=== PATIENT | female | born 1945 | race Caucasian/White ===

== ENCOUNTER → 2022-02-14 14:51 | Outpatient (BNVA) | payer MEDICARE, OTHER, SELFPAY | PROVIDERS: PCP Internal Medicine; Visit Provider Psychiatry & Neurology Neurology | DX: G20 Parkinson's disease (principal); R26.89 Other abnormalities of gait and mobility | CPT/HCPCS: 99202 ==

== ENCOUNTER → 2022-05-16 14:48 | Outpatient (BNVA) | payer MEDICARE, OTHER, SELFPAY | PROVIDERS: PCP Internal Medicine; Visit Provider Psychiatry & Neurology Neurology | DX: G20 Parkinson's disease (principal); R26.89 Other abnormalities of gait and mobility; G25.9 Extrapyramidal and movement disorder, unspecified | CPT/HCPCS: 99212 ==

== ENCOUNTER → 2022-08-25 14:19 | Outpatient (BNVA) | payer MEDICARE, OTHER, SELFPAY | PROVIDERS: PCP Internal Medicine; Visit Provider Psychiatry & Neurology Neurology | DX: G20 Parkinson's disease (principal); G25.9 Extrapyramidal and movement disorder, unspecified; R26.89 Other abnormalities of gait and mobility; M54.2 Cervicalgia; M54.9 Dorsalgia, unspecified | CPT/HCPCS: 99212 ==

== ENCOUNTER → 2022-09-24 13:49 | Outpatient (BNVA) | payer MEDICARE, OTHER, SELFPAY | PROVIDERS: PCP Internal Medicine; Visit Provider Psychiatry & Neurology Neurology | DX: G20 Parkinson's disease (principal); R26.89 Other abnormalities of gait and mobility; G25.9 Extrapyramidal and movement disorder, unspecified | CPT/HCPCS: 99212 ==

== ENCOUNTER → 2022-11-25 14:50 | Outpatient (BNVA) | payer MEDICARE, OTHER, SELFPAY | PROVIDERS: PCP Internal Medicine; Visit Provider Psychiatry & Neurology Neurology | DX: G20 Parkinson's disease (principal); R26.89 Other abnormalities of gait and mobility; G25.9 Extrapyramidal and movement disorder, unspecified | CPT/HCPCS: 99212 ==

== ENCOUNTER → 2022-12-19 14:37 | Outpatient (BNVA) | payer MEDICARE, OTHER, SELFPAY | PROVIDERS: PCP Internal Medicine; Visit Provider Physician Assistant | DX: G95.20 Unspecified cord compression (principal) | CPT/HCPCS: 99202 ==

== ENCOUNTER → 2023-01-28 14:52 | Outpatient (BNVA) | payer MEDICARE, OTHER, SELFPAY | PROVIDERS: PCP Internal Medicine; Visit Provider Psychiatry & Neurology Neurology | DX: G95.20 Unspecified cord compression (principal); G25.9 Extrapyramidal and movement disorder, unspecified; R26.89 Other abnormalities of gait and mobility | CPT/HCPCS: 99212 ==

== ENCOUNTER 2023-03-16 13:13 | Outpatient (AMB) | payer MEDICARE, OTHER, SELFPAY ==
--- NOTE | 2023-03-16 13:22 | A.OFFVIS_ITS ---
Intake Vital Signs 03/16/23 13:40 Height 5 ft 3 in BP 140/70 H Blood Pressure Location Rt brachial Position Sitting Pulse 89 Pulse Source Pulse Oximeter Pulse Oximetry (%) 95 Oxygen Delivery Method Room Air Intake Visit Reasons: 2m follow up Parkinson's Intake Note: Patient presents for 2 month follow up. Patient states she had a cerebral event last week () Allergies No Known Allergies Allergy (Verified 03/16/23 13:35) Medication List - Last Reconciled 03/16/23 by Chika Negrete MD albuterol sulfate 90 mcg/actuation 1 inh inhalation Q4H PRN albuterol sulfate 2.5 mg inhalation TID PRN aspirin 81 mg PO DAILY biotin 5,000 mcg PO DAILY cholecalciferol (vitamin D3) 25 mcg PO DAILY docusate sodium 100 mg PO DAILY fluoxetine 20 mg PO QAM agiyurungdd-conpiejgv-ttsskaup 100-62.5-25 mcg (Trelegy Ellipta) 1 ea inhalation DAILY L.acidophilus-Bifido.longum 15 mg (1 billion cell) 1 cap PO DAILY lorazepam 1 mg PO TID PRN losartan 50 mg PO DAILY multivitamin (Daily Multi-Vitamin tablet) 1 tab PO DAILY omeprazole 20 mg PO DAILY onabotulinumtoxinA (cosmetic) (Botox Cosmetic) IM .yearly ondansetron HCl 4 mg PO Q8H PRN pravastatin 20 mg PO BEDTIME ramelteon 8 mg PO BEDTIME ropinirole 1 mg PO QID 90 days wheat dextrin (Best Fiber) 1 packet PO DAILY HPI HPI Comments History of Present Illness Details 77y/o right handed female comes for follow up . On March 04 2023 ( 10 days ago ) she was scheduled for preop and was suddenly confused- did not know where she was going. At the preop physical - she was admitted to r/o stroke she was admitted - CT CTA were nonfocal . 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 she was diagnosed with Transient Global amnesia- acute delirium vs stress related( she has been stressed baout her diagnosis of Macular deg and cervical spine surgery) she is on Aspirin 81mg qd and pravastatin 20mg . she was supposed to have C spine surgery today at [facility] but was cancelled. Her spouse is concerned about her cognition. she has numbness, tingling and burning pain in her feet. she feels her balance is off . No falls. she feels her fine motor skills have worsened.Since her last visit she was diagnosed with emphysema,asthma, lung infection, right eye macular degeneration etc. she meets up with Dr. Heber Garcia tomorrow for her mood. she reports worsening of her balance . No falls. Tremors are worse. she reports vertigo when she changes position. she takes lorazepam 1mg 2 tabs qhs - she has frequent arousals . she reports pain in her lower extremities Tylenol helps She has IBS. 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 currently she is doing better without botox. Her brother has dystonias well she also has myectomy in the past. [facility] Medical History (Updated 03/16/23 @ 14:16 by Chika Negrete MD) Anxiety Arthritis Cataract Cervical cord compression with myelopathy Cervical spondylosis Cognitive impairment Depression Diabetes Emphysema lung History of skin cancer History of squamous cell carcinoma Hx of basal cell carcinoma Hyperlipidemia Irritable bowel syndrome Macular degeneration Parkinson disease Sinusitis TGA (transient global amnesia) Surgical History H/O abdominoplasty H/O cervical spine surgery History of repair of rectocele History of surgery Hx of breast surgery Hx of cataract extraction Hx of cholecystectomy Hx of hysterectomy Hx of tonsillectomy Hx of tubal ligation Family History Sister Dystonia Other IBS (irritable bowel syndrome) Skin cancer Social History Household Members: Spouse Alcohol intake: former Patient Tobacco Use Status: Never used Tobacco Review of Systems Neuro Reports Abnormal speech present Physical Exam Vital Signs: Last Vital Signs Pulse 89 03/16/23 13:40 BP 140/70 H 03/16/23 13:40 Pulse Ox 95 03/16/23 13:40 Oxygen Delivery Method Room Air 03/16/23 13:40 Const General: cooperative, comfortable and awake Nutritional Appearance: average body habitus Orientation/consciousness: patient oriented x3 HEENT Other: mild blepherospasm Head: Yes normal to inspection Neck Other: restricted range of motion Neuro Other: head mild tilt to right and trunk mild tilt to left Mild decreased blink and facial expression no tremors Mild perioral movements tongue movements No tremors, jasper cog wheel rigidty - 1 + FFM and foot taps normal Gait - mild slowness, good posture stride General: patient oriented x3 Speech: Abnormal speech present Deep tendon reflexes (DTR's): Right triceps reflex intensity grade: 2+, Left triceps reflex intensity grade: 2+, Rt Biceps (C5, C6): 2+, Left biceps reflex intensity grade: 2+, Right brachioradialis reflex intensity grade: 2+, Left brachioradialis reflex intensity grade: 2+, Right patellar reflex intensity grade: 4+, Left patellar reflex intensity grade: 4+, Right ankle reflex intensity grade: 4+ and Left ankle reflex intensity grade: 4+ Coordination: naqoyp-rt-[id number] test normal Assessment & Plan Assessment & Plan (1) Cervical cord compression with myelopathy: Code(s): G95.20 - Unspecified cord compression (2) Extrapyramidal and movement disorder: Comment: TAMI negative Has parkinsonism and some perioral movements Code(s): G25.9 - Extrapyramidal and movement disorder, unspecified (3) TGA (transient global amnesia): Comment: likely stress related Code(s): G45.4 - Transient global amnesia (4) Cognitive impairment: Code(s): R41.89 - Other symptoms and signs involving cognitive functions and awareness Plan Reviewed admission notes and MRI labs from [facility] . Neuropsych evaluation continue aspirin 81mg qd Pravastatin 20mg qd( LDL 74) consider using incontinence pads for night Continue ropinirole 1mg qid ramelteon 8mg qhs Call neurosurgery - for cord compression. Orders: Referrals Neuropsychiatry Referral R41.89 - Other symptoms and signs involving cognitive functions and awareness Coding Level of Care Code Est Pt Level 4 (56271) Diagnoses Cervical cord compression with myelopathy G95.20 Extrapyramidal and movement disorder G25.9 TGA (transient global amnesia) G45.4 Cognitive impairment R41.89
[2023-03-16 13:40] VITALS: BP 140/70; PULSE 89; O2SAT 95
== END 2023-03-16 14:22 | disposition home or self-care (01) ==
PROVIDERS: PCP Internal Medicine; Visit Provider Psychiatry & Neurology Neurology
DX: G95.20 Unspecified cord compression (principal); G25.9 Extrapyramidal and movement disorder, unspecified; G45.4 Transient global amnesia; R41.89 Other symptoms and signs involving cognitive functions and awareness
CPT/HCPCS: 99214

== ENCOUNTER → 2023-03-16 13:13 | Outpatient (BNVA) | payer MEDICARE, OTHER, SELFPAY | PROVIDERS: PCP Internal Medicine; Visit Provider Psychiatry & Neurology Neurology | DX: G95.20 Unspecified cord compression (principal); G45.4 Transient global amnesia; R41.89 Other symptoms and signs involving cognitive functions and awareness; G25.9 Extrapyramidal and movement disorder, unspecified | CPT/HCPCS: 99212 ==

== ENCOUNTER 2023-06-22 13:05 | Outpatient (AMB) | payer MEDICARE, OTHER, SELFPAY ==
--- NOTE | 2023-06-22 13:25 | A.OFFVIS_ITS ---
Intake Vital Signs 06/22/23 13:26 Weight 141 lb 8 oz BP 154/86 H Blood Pressure Location Lt brachial Position Sitting Respiration 16 Pulse 71 Pulse Source Pulse Oximeter Pulse Oximetry (%) 96 Oxygen Delivery Method Room Air Intake Visit Reasons: 3m follow up Parkinson's/Confirmed Intake Note: Pt presents to the office for her 3 month follow up for Parkinson's. She reports she is worse than at her last visit. There has been gradual worsening of her tremors. She now also has hallucinations that have been happening for about 2 months. 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: No Allergies No Known Allergies Allergy (Verified 06/22/23 13:26) Medication List - Last Reconciled 06/22/23 by Chika Negrete MD albuterol sulfate 90 mcg/actuation 1 inh inhalation Q4H PRN albuterol sulfate 2.5 mg inhalation TID PRN aspirin 81 mg PO DAILY biotin 5,000 mcg PO DAILY cholecalciferol (vitamin D3) 25 mcg PO DAILY docusate sodium 100 mg PO DAILY fluoxetine 20 mg PO QAM glstlmruqaj-afoleqnhm-mhxlsnlm 100-62.5-25 mcg (Trelegy Ellipta) 1 ea inhalation DAILY L.acidophilus-Bifido.longum 15 mg (1 billion cell) 1 cap PO DAILY lorazepam 1 mg PO TID PRN losartan 50 mg PO DAILY multivitamin (Daily Multi-Vitamin tablet) 1 tab PO DAILY omeprazole 20 mg PO DAILY onabotulinumtoxinA (cosmetic) (Botox Cosmetic) IM .yearly ondansetron HCl 4 mg PO Q8H PRN pravastatin 20 mg PO BEDTIME ropinirole 1 mg PO QID 90 days vitamins A,C,P-riqh-xlqfwq 2,148 mcg-113 mg-45 mg-17.4mg (PreserVision AREDS) 2 tabs PO BID wheat dextrin (Best Fiber) 1 packet PO DAILY HPI HPI Comments History of Present Illness Details 78y/o right handed female comes for [facility] .she has cervical myelopathy with cord compression and was seen by neurosurgeon at [facility] but she and her are not sure due to her watershed infarct. she does well with ropiniorle 1mg qid but needs reminding .she reports hallucinations mostly at night. Previous history- On March 04 2023 ( 10 days ago ) she was scheduled for preop and was suddenly confused- did not know where she was going. At the preop physical - she was admitted to r/o stroke she was admitted - CT CTA were nonfocal . 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 she was diagnosed with Transient Global amnesia- acute delirium vs stress related( she has been stressed about her diagnosis of Macular deg and cervical spine surgery) she is on Aspirin 81mg qd and pravastatin 20mg . she was supposed to have C spine surgery today at [facility] but was cancelled. Her spouse is concerned about her cognition. she has numbness, tingling and burning pain in her feet. she feels her balance is off . No falls. she feels her fine motor skills have worsened.Since her last visit she was diagnosed with emphysema,asthma, lung infection, right eye macular degeneration etc. she meets up with Dr. Heber Garcia tomorrow for her mood. she reports worsening of her balance . No falls. Tremors are worse. she reports vertigo when she changes position. she takes lorazepam 1mg 2 tabs qhs - she has frequent arousals . she reports pain in her lower extremities Tylenol helps She has IBS. 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 currently she is doing better without botox. Her brother has dystonias well she also has myectomy in the past. [facility] Medical History Cognitive impairment TGA (transient global amnesia) Parkinson disease Cervical cord compression with myelopathy Cervical spondylosis Macular degeneration Emphysema lung Hx of basal cell carcinoma History of squamous cell carcinoma Sinusitis Arthritis Irritable bowel syndrome Hyperlipidemia Diabetes Depression Anxiety History of skin cancer Cataract Surgical History Hx of cataract extraction History of repair of rectocele History of surgery H/O cervical spine surgery H/O abdominoplasty Hx of tubal ligation Hx of breast surgery Hx of hysterectomy Hx of cholecystectomy Hx of tonsillectomy Family History Sister Dystonia Other IBS (irritable bowel syndrome) Skin cancer Social History Household Members: Spouse Alcohol intake: former Patient Tobacco Use Status: Never used Tobacco Review of Systems Neuro Reports Abnormal speech present Physical Exam Vital Signs: Last Vital Signs Pulse 71 06/22/23 13:26 Resp 16 06/22/23 13:26 BP 154/86 H 06/22/23 13:26 Pulse Ox 96 06/22/23 13:26 Oxygen Delivery Method Room Air 06/22/23 13:26 Const General: cooperative, comfortable and awake Nutritional Appearance: average body habitus Orientation/consciousness: patient oriented x3 HEENT Other: mild blepherospasm Head: Yes normal to inspection Neck Other: restricted range of motion Neuro Other: head mild tilt to right and trunk mild tilt to left Mild decreased blink and facial expression no tremors Mild perioral movements tongue movements No tremors, jasper cog wheel rigidty - 1 + FFM and foot taps normal Gait - mild slowness, good posture stride General: patient oriented x3 Speech: Abnormal speech present Deep tendon reflexes (DTR's): Right triceps reflex intensity grade: 2+, Left triceps reflex intensity grade: 2+, Rt Biceps (C5, C6): 2+, Left biceps reflex intensity grade: 2+, Right brachioradialis reflex intensity grade: 2+, Left brachioradialis reflex intensity grade: 2+, Right patellar reflex intensity grade: 4+, Left patellar reflex intensity grade: 4+, Right ankle reflex intensity grade: 4+ and Left ankle reflex intensity grade: 4+ Coordination: iueimu-kg-uijs test normal Assessment & Plan Assessment & Plan (1) Cervical cord compression with myelopathy: Code(s): G95.20 - Unspecified cord compression (2) Extrapyramidal and movement disorder: Comment: TAMI negative Has parkinsonism and some perioral movements Code(s): G25.9 - Extrapyramidal and movement disorder, unspecified (3) TGA (transient global amnesia): Comment: likely stress related Code(s): G45.4 - Transient global amnesia (4) Cognitive impairment: Code(s): R41.89 - Other symptoms and signs involving cognitive functions and awareness Plan continue aspirin 81mg qd Pravastatin 20mg qd( LDL 74) consider using incontinence pads for night Change ropinirole XR 2mg qam and 1mg qhs ramelteon 8mg qhs Neuropsych report - Jun 10 will call after reviewing report. Follow up neurosurgery - for cord compression. Medications: New ropinirole ER 2 mg PO QAM 30 tabs 6RF Changed From ropinirole 1 mg PO QID 90 days 360 tabs 1RF To ropinirole 1 mg PO BEDTIME 90 days 90 tabs 1RF From lorazepam 1 mg PO TID PRN Anxiety To lorazepam 1 mg PO BEDTIME PRN Anxiety Coding Level of Care Code Est Pt Level 4 (18455) Diagnoses Cervical cord compression with myelopathy G95.20 Extrapyramidal and movement disorder G25.9 TGA (transient global amnesia) G45.4 Cognitive impairment R41.89
[2023-06-22 13:26] VITALS: BP 154/86; PULSE 71; RESP 16; O2SAT 96
== END 2023-06-22 14:11 | disposition home or self-care (01) ==
PROVIDERS: PCP Internal Medicine; Visit Provider Psychiatry & Neurology Neurology
DX: G95.20 Unspecified cord compression (principal); G25.9 Extrapyramidal and movement disorder, unspecified; G45.4 Transient global amnesia; R41.89 Other symptoms and signs involving cognitive functions and awareness
CPT/HCPCS: 99214

== ENCOUNTER → 2023-06-22 13:05 | Outpatient (BNVA) | payer MEDICARE, OTHER, SELFPAY | PROVIDERS: PCP Internal Medicine; Visit Provider Psychiatry & Neurology Neurology | DX: G95.20 Unspecified cord compression (principal); G25.9 Extrapyramidal and movement disorder, unspecified; G45.4 Transient global amnesia; R41.89 Other symptoms and signs involving cognitive functions and awareness; Z79.82 Long term (current) use of aspirin | CPT/HCPCS: 99212 ==

== ENCOUNTER → 2023-10-28 12:56 | Outpatient (BNVA) | payer MEDICARE, OTHER, SELFPAY | PROVIDERS: PCP Internal Medicine; Visit Provider Psychiatry & Neurology Neurology | DX: G95.20 Unspecified cord compression (principal); G25.9 Extrapyramidal and movement disorder, unspecified; G45.4 Transient global amnesia; F03.90 Unspecified dementia, unspecified severity, without behavioral disturbance, psychotic disturbance, mood disturbance, and anxiety | CPT/HCPCS: 99212 ==

== ENCOUNTER → 2023-10-28 13:29 | Outpatient (AMB) | payer MEDICARE, OTHER, SELFPAY ==
--- NOTE | 2023-10-28 12:57 | MHC.OFFVIS ---
Intake Vital Signs 10/28/23 12:58 Height 5 ft 3 in Weight 143 lb 6 oz BMI 25.4 BP 144/70 H Blood Pressure Location Rt brachial Position Sitting Respiration 16 Pulse 104 H Pulse Source Pulse Oximeter Pulse Oximetry (%) 96 Oxygen Delivery Method Room Air Intake Visit Reasons: 4 mo f/u parkinsons-CONF Intake Note: Pt presents to the office for a 4 month follow up for Parkinson's. 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 Allergies No Known Allergies Allergy (Verified 10/28/23 12:58) Medication List - Last Reconciled 10/28/23 by Chika Negrete MD albuterol sulfate 90 mcg/actuation 1 inh inhalation Q4H PRN albuterol sulfate 2.5 mg inhalation TID PRN aspirin 81 mg PO DAILY biotin 5,000 mcg PO DAILY cholecalciferol (vitamin D3) 25 mcg PO DAILY docusate sodium 100 mg PO DAILY donepezil 10 mg PO BEDTIME fluoxetine 20 mg PO QAM oybxrgpgdqm-gxhvtkwlo-hjjxuvey 100-62.5-25 mcg (Trelegy Ellipta) 1 ea inhalation DAILY L.acidophilus-Bifido.longum 15 mg (1 billion cell) 1 cap PO DAILY lorazepam 1 mg PO BEDTIME PRN losartan 100 mg PO DAILY multivitamin (Daily Multi-Vitamin tablet) 1 tab PO DAILY omeprazole 20 mg PO DAILY onabotulinumtoxinA (cosmetic) (Botox Cosmetic) IM .yearly ondansetron HCl 4 mg PO Q8H PRN pravastatin 20 mg PO BEDTIME ropinirole 1 mg PO BEDTIME 90 days ropinirole ER 2 mg PO QAM vitamins A,C,E-xaug-uymicq 2,148 mcg-113 mg-45 mg-17.4mg (PreserVision AREDS) 2 tabs PO BID wheat dextrin (Best Fiber) 1 packet PO DAILY HPI HPI Comments History of Present Illness Details 78y/o right handed female comes for follow up .Her foot pain and spasm at night has increased significantly and is disrupting her sleep.Her gait is worse. No falls . she has cervical myelopathy with cord compression and was seen by neurosurgeon at [facility] but she and her are not sure due to her watershed infarct. she does well with ropiniorle 1mg qid but needs reminding .she has rare hallucinations which does not bother her. she also has severe back pain. Previous history- On March 04 2023 ( 10 days ago ) she was scheduled for preop and was suddenly confused- did not know where she was going. At the preop physical - she was admitted to r/o stroke she was admitted - CT CTA were nonfocal . 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 she was diagnosed with Transient Global amnesia- acute delirium vs stress related( she has been stressed about her diagnosis of Macular deg and cervical spine surgery) she is on Aspirin 81mg qd and pravastatin 20mg . she was supposed to have C spine surgery today at [facility] but was cancelled. Her spouse is concerned about her cognition. she has numbness, tingling and burning pain in her feet. she feels her balance is off . No falls. she feels her fine motor skills have worsened.Since her last visit she was diagnosed with emphysema,asthma, lung infection, right eye macular degeneration etc. she meets up with Dr. Heber Garcia tomorrow for her mood. she reports worsening of her balance . No falls. Tremors are worse. she reports vertigo when she changes position. she takes lorazepam 1mg 2 tabs qhs - she has frequent arousals . she reports pain in her lower extremities Tylenol helps She has IBS. 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 currently she is doing better without botox. Her brother has dystonias well she also has myectomy in the past. [facility] Medical History (Updated 10/28/23 @ 13:23 by Chika Negrete MD) Dementia Cognitive impairment TGA (transient global amnesia) Parkinson disease Cervical cord compression with myelopathy Cervical spondylosis Macular degeneration Emphysema lung Hx of basal cell carcinoma History of squamous cell carcinoma Sinusitis Arthritis Irritable bowel syndrome Hyperlipidemia Diabetes Depression Anxiety History of skin cancer Cataract Surgical History Hx of cataract extraction History of repair of rectocele History of surgery H/O cervical spine surgery H/O abdominoplasty Hx of tubal ligation Hx of breast surgery Hx of hysterectomy Hx of cholecystectomy Hx of tonsillectomy Family History Sister Dystonia Other IBS (irritable bowel syndrome) Skin cancer Social History Household Members: Spouse Alcohol intake: former Patient Tobacco Use Status: Never used Tobacco Physical Exam Vital Signs: Last Vital Signs Pulse 104 H 10/28/23 12:58 Resp 16 10/28/23 12:58 BP 144/70 H 10/28/23 12:58 Pulse Ox 96 10/28/23 12:58 Oxygen Delivery Method Room Air 10/28/23 12:58 BMI result Body Mass Index 25.4 Assessment & Plan Assessment & Plan (1) Cervical cord compression with myelopathy: Code(s): G95.20 - Unspecified cord compression (2) Extrapyramidal and movement disorder: Comment: TAMI negative Has parkinsonism and some perioral movements Code(s): G25.9 - Extrapyramidal and movement disorder, unspecified (3) TGA (transient global amnesia): Comment: likely stress related Code(s): G45.4 - Transient global amnesia (4) Dementia: Code(s): F03.90 - Unspecified dementia, unspecified severity, without behavioral disturbance, psychotic disturbance, mood disturbance, and anxiety Plan continue aspirin 81mg qd Pravastatin 20mg qd( LDL 74) consider using incontinence pads for night Change ropinirole XR 2mg bid Ropinirole 0.25 mg prn bid will consider adding memantine continue donepezil 10mg qd Pain management refferal Follow up neurosurgery - for cord compression. Orders: Referrals Pain Management Referral M47.812 - Spondylosis without myelopathy or radiculopathy, cervical region, M54.2 - Cervicalgia, M54.9 - Dorsalgia, unspecified Medications: New ropinirole 0.25 mg PO BID PRN 60 tabs 6RF spasms Changed From ropinirole ER 2 mg PO QAM 30 tabs 6RF To ropinirole ER 2 mg PO BID 60 tabs 6RF Discontinued ropinirole Discontinued Reason: Doctor's Order 1 mg PO BEDTIME 90 days 90 tabs 1RF Coding Level of Care Code Est Pt Level 5 (95255) Diagnoses Cervical cord compression with myelopathy G95.20 Extrapyramidal and movement disorder G25.9 TGA (transient global amnesia) G45.4 Dementia F03.90
[2023-10-28 12:58] VITALS: BP 144/70; PULSE 104; RESP 16; O2SAT 96; BMI 25.4
== END | disposition home or self-care (01) ==
LOC: HO.HSMS 12:56
PROVIDERS: PCP Internal Medicine; Visit Provider Psychiatry & Neurology Neurology
DX: M50.03 Cervical disc disorder with myelopathy, cervicothoracic region (principal); G20.C Parkinsonism, unspecified; F02.82 Dementia in other diseases classified elsewhere, unspecified severity, with psychotic disturbance; G45.4 Transient global amnesia
CPT/HCPCS: 99215